=== PATIENT | male | born 1975 | race Caucasian/White ===

== ENCOUNTER 2022-01-15 11:49 | Emergency (ER) | payer SELFPAY ==
--- NOTE | ~2022-01-15 | CT_ITS ---
EXAMINATION: CT facial bones w con DATE: 01/15/2022 15:12 INDICATION: Left facial swelling. TECHNIQUE: Computed tomography (CT) of the facial bones and maxillofacial region was performed with 7 5 mL Omnipaque 350 intravenous contrast. Automated exposure control and iterative reconstruction tech [employer] were employed. The dose-length product was 519.56 mGy-cm. COMPARISON: None. FINDINGS: There is left cheek soft tissue swelling. There is a mildly enlarged right high internal ju gular chain lymph node, likely reactive. There is mucosal thickening in the paranasal sinuses. There are carious lesions of most of the teeth. Many of the teeth are broken. There are periapical lucencie s adjacent to multiple maxillary teeth bilaterally. There is breach of the buccal cortex of the alveo lar process at teeth 21, 20, and 19. No drainable abscess is visualized. Artifact from the tongue pie rcings decreases sensitivity. IMPRESSION: 1. Extensive dental disease. Reviewed, dictated and finalized at location A.
[2022-01-15 12:08] VITALS: BP 108/73; PULSE 102; RESP 14; TEMP 36.8; O2SAT 99
--- NOTE | 2022-01-15 13:24 | ED.DENTAL ---
HPI - Dental/Oral General Chief complaint: Dental/Oral Stated complaint: left facial pain - dental abscess Time Seen by Provider: 01/15/22 13:11 History of Present Illness HPI Narrative: This 46-year-old male with past medical history of dental abscesses who presents to the emergency department complaining of left-sided facial swelling and pain. He states he noticed this 2 days ago that gradually has become worse. He complains of 7 out of 10 pain with chewing but otherwise denies headache, change/loss of vision, change/loss of hearing, double vision or difficulty swallowing. Related Data Allergies Allergy/AdvReac Type Severity Reaction Status Date / Time No Known Allergies Allergy Verified 01/15/22 11:50 Review of Systems Review of Systems: CONSTITUTIONAL: Denies fever, chills, or sweats. EYES: Denies visual changes, redness, or discharge. ENT: Jaw pain denies rhinorrhea, congestion, sore throat, or otalgia. CARDIOVASCULAR: Denies chest pain, palpitations, or edema. RESPIRATORY: Denies cough or dyspnea. GASTROINTESTINAL: Denies abdominal pain, nausea, vomiting, or diarrhea. GENITOURINARY: Denies dysuria or hematuria. SKIN: Denies rash or itching. MUSCULOSKELETAL: Denies back pain, joint pain, or myalgia. NEUROLOGIC: Denies headache, numbness, dizziness, or weakness. PSYCHIATRIC: Denies anxiety or depression. COUNTS INCLUDE 234 BEDS AT THE [facility] Past Medical History Medical History (Updated 01/15/22 @ 22:36 by Dl Ribeiro MD) Dental abscess Dental caries Social History Social History (Updated 01/15/22 @ 22:37 by Dl Ribeiro MD) Smoking status: Never smoker Alcohol intake: former Substance use type: marijuana Exam Narrative: GENERAL: Well-appearing, well-nourished, and in no acute distress. HEAD: Mild swelling of the left maxilla with some erythema without induration, atraumatic. EYES: PERRLA and EOMI. ENT: Nares clear, no rhinorrhea or epistaxis. Mucous membranes moist. Poor dentition with multiple caries and dental fractures, mild erythema and swelling of the maxilla at tooth number 11, without tonsillar hypertrophy exudate or other lesions. NECK: Supple. No adenopathy or masses. No carotid bruits or JVD CHEST: Clear to auscultation. No respiratory distress. No wheezes rales or rhonchi HEART: Regular rate and rhythm. No murmur heard. Normal peripheral pulses. ABDOMEN: Soft, nontender, nondistended, normal active bowel sounds. EXTREMITIES: Normal range of motion. No edema. SKIN: Warm, dry, no rash. NEURO: No focal deficits. Alert and oriented x3. PSYCH: Normal mood and affect. Course Course Emergency Course: 15:42 -CT demonstrates facial swelling with no obvious abscess or involvement of the facial structures. Reassessed patient, he states he feels somewhat improved. Will discharge with oral antibiotics, dental and primary care follow-up. Discussed return emergency precautions including signs/symptoms of deep space facial infection. Patient voiced understanding and is comfortable with the plan. All questions answered to his satisfaction. Vital Signs Vital signs: Vital Signs Temperature 98.2 F 01/15/22 12:08 Pulse Rate 102 H 01/15/22 12:08 Respiratory Rate 14 01/15/22 12:08 Blood Pressure 108/73 01/15/22 12:08 Pulse Oximetry 99 01/15/22 12:08 Oxygen Delivery Room Air 01/15/22 12:08 Temperature 98.2 F 01/15/22 12:08 Pulse Rate 93 01/15/22 15:47 Respiratory Rate 14 01/15/22 15:47 Blood Pressure 111/85 01/15/22 15:47 Pulse Oximetry 98 01/15/22 15:47 Oxygen Delivery Room Air 01/15/22 12:08 MDM - Dental/Oral MDM Narrative Medical decision making narrative: Plan: pain control, imaging, reassess Differential Diagnosis Differential diagnosis: Likely dental caries, dental abscess and other (Facial abscess, other) Lab Data Result diagrams: 01/15/22 13:35 Labs: Lab Results 01/15/22 Range/Units 13:35 Sodium 136 L (137-145) mmol/L [place]
[2022-01-15] MEDS: AMPICILLIN SULB 1.5 GM/NS 50ML 1.5 GM/50 ML VIAL IVPB (13:44)
[2022-01-15 14:22] LABS: Anion Gap 9 mmol/L (8-16); Blood Urea Nitrogen 14 mg/dL (9-20); Calcium 8.9 mg/dL (8.4-10.2); Carbon Dioxide 28 mmol/L (22-30); Chloride 99 mmol/L (98-107); Estimated CRCL calculation 65 ml/min; Estimated Glomerular Filt Rate 60; Glucose 112 mg/dL (65-110); Potassium 3.8 mmol/L (3.4-5.0); Sodium 136 mmol/L (137-145)
[2022-01-15 15:47] VITALS: BP 111/85; PULSE 93; RESP 14; O2SAT 98
== END 2022-01-15 15:59 | disposition home or self-care (01) ==
PROVIDERS: Emergency Provider Preventive Medicine Aerospace Medicine
DX: K04.7 Periapical abscess without sinus (principal); K08.89 Other specified disorders of teeth and supporting structures; R51.9 Headache, unspecified
CPT/HCPCS: 36415; 70487; 80048; 96365; 96375; 99284; J0131; J0295; Q9967

== ENCOUNTER 2022-11-14 11:13 | Emergency (ER) | payer SELFPAY ==
--- NOTE | ~2022-11-14 | XR_ITS ---
EXAMINATION: XR lumbar spine 2-3V DATE: 11/14/2022 14:28 INDICATION: Low back pain. TECHNIQUE: 3 views of lumbar spine were obtained. COMPARISON: None. FINDINGS: There is 4 degrees levocurvature of lumbar spine. Vertebral body heights are normal. There is mildly decreased disc height at L4-L5 and L5-S1. There is multilevel mild to moderate facet joint osteoarthritis. IMPRESSION: 1. Mild lumbar spondylosis. Reviewed, dictated and finalized at location L. IMPRESSION: 1. Mild lumbar spondylosis.
[2022-11-14 11:45] VITALS: BP 125/72; PULSE 82; RESP 20; TEMP 36.4; O2SAT 98
[2022-11-14 11:55] VITALS: BP 126/78; PULSE 77; RESP 18; TEMP 36.6; O2SAT 97
--- NOTE | 2022-11-14 14:35 | ED.BACK ---
HPI - Back Pain/Injury General Chief Complaint: Back Pain/Injury Stated Complaint: back pain Time Seen by Provider: 11/14/22 13:08 Source: patient Mode of arrival: ambulatory Limitations: no limitations History of Present Illness HPI Narrative: This is a 46-year-old male that presents to the emergency department for low back pain present over the last week. No known injury or trauma. He does report he does a lot of bending and some lifting at work. Reports left-sided low back pain that is worse with walking and certain movements. Denies fever, abdominal pain, vomiting, dysuria, hematuria, saddle anesthesia, or bowel/bladder continence. Related Data Allergies Allergy/AdvReac Type Severity Reaction Status Date / Time No Known Allergies Allergy Verified 01/15/22 11:50 Review of Systems Review of Systems: CONSTITUTIONAL: Denies fever GASTROINTESTINAL: Denies abdominal pain, nausea, vomiting GENITOURINARY: Denies dysuria or hematuria. SKIN: Denies rash MUSCULOSKELETAL: Reports back pain, joint pain, and myalgia. NEUROLOGIC: Denies numbness, or weakness. All systems reviewed & are unremarkable except as noted in HPI and below PMFSH Past Medical History Medical History (Updated 11/14/22 @ 14:40 by Lisandra Barragan PA-C) Dental abscess Dental caries Social History Social History (Updated 01/15/22 @ 22:37 by Dl Ribeiro MD) Smoking status: Never smoker Alcohol intake: former Substance use type: marijuana Exam Narrative: GENERAL: Well-appearing, well-nourished, and in no acute distress. HEAD: Normocephalic, atraumatic. EYES: EOMI. CHEST: Clear to auscultation. No respiratory distress. No wheezes rales or rhonchi HEART: Regular rate and rhythm. No murmur heard. Normal peripheral pulses. BACK: No midline spinal tenderness EXTREMITIES: Normal range of motion. No edema. Strength equal in bilateral lower extremities (5/5). Normal DP pulses. Normal sensation SKIN: Warm, dry, no rash. NEURO: No focal deficits. Alert and oriented x3. PSYCH: Normal mood and affect Course Course Emergency Course: Patient updated on work-up and agrees with plan of care Vital Signs Vital signs: Vital Signs Temperature 97.6 F 11/14/22 11:45 Pulse Rate 82 11/14/22 11:45 Respiratory Rate 20 11/14/22 11:45 Blood Pressure 125/72 11/14/22 11:45 Pulse Oximetry 98 11/14/22 11:45 Oxygen Delivery Room Air 11/14/22 11:45 Temperature 97.9 F 11/14/22 11:55 Pulse Rate 77 11/14/22 11:55 Respiratory Rate 18 11/14/22 11:55 Blood Pressure 126/78 11/14/22 11:55 Pulse Oximetry 97 11/14/22 11:55 Oxygen Delivery Room Air 11/14/22 11:55 MDM - Back Pain/Injury MDM Narrative Medical decision making narrative: Patient presents to the emergency department for low back pain ongoing over the last week. No known injury or trauma. Patient is neurologically intact. He denies any abdominal pain or urinary symptoms. Pain is worse with movement and relieved with rest. Lumbar spine x-ray shows mild lumbar spondylosis. Patient instructed to continue to rest, ice and take [id number] pain medication as needed. He is to follow-up with primary care provider. He was given warnings to return to the ER Differential Diagnosis Differential diagnosis: Likely lumbar radiculopathy and strain of lumbar region Imaging Data Radiologist's impression: ITS Impressions Lumbar Spine X-Ray 11/14/22 14:30 IMPRESSION: 1. Mild lumbar spondylosis. Critical Care Time Critical Care Time Critical Care Time: No Discharge Plan Discharge Clinical Impression: Low back pain Qualifiers: Chronicity: acute Back pain laterality: left Sciatica presence: without sciatica Qualified Code(s): M54.50 - Low back pain, unspecified Patient Disposition: Home, Self-Care Condition: Stable Instructions: Acute Low Back Pain (ED) Additional Instructions: Return to the ER if you experience w
== END 2022-11-14 14:51 | disposition home or self-care (01) ==
PROVIDERS: Emergency Provider Physician Assistant
DX: M54.50 Low back pain, unspecified (principal)
CPT/HCPCS: 72100; 99283

== ENCOUNTER 2024-04-26 14:19 | Emergency (ER) | payer OTHER, SELFPAY ==
--- NOTE | ~2024-04-26 | XR_ITS ---
EXAMINATION: XR chest 2V DATE: 04/26/2024 14:48 INDICATION: Lightheadedness. Cough. TECHNIQUE: Frontal and lateral views of the chest were obtained on 3 radiographs. COMPARISON: None. FINDINGS: There is no pneumonia, pleural effusion, or pneumothorax. The heart size is normal. IMPRESSION: 1. No acute cardiopulmonary disease. Reviewed, dictated and finalized at location A. [employer]
[2024-04-26 14:21] VITALS: BP 152/95; PULSE 93; RESP 16; TEMP 36.4; O2SAT 100
--- NOTE | 2024-04-26 14:27 | ED_ITS ---
HPI - General Adult General Chief complaint: Dizziness <SHIRA Heard Last Filed: 04/26/24 14:35> Stated complaint: light headed, fever, weakness <SHIRA Heard Last Filed: 04/26/24 14:35> Time Seen by Provider: 04/26/24 14:27 <SHIRA Heard Last Filed: 04/26/24 14:35> Focused HPI: Patient is a 48-year-old male who presents the ED with multiple complaints. Patient reports he began feeling unwell on night with lightheadedness and dizziness. States at times he felt near syncopal, occasionally feels like the room is spinning- like the ground under him is unstable or his brain feels scrambled. Denies syncope/LOC. states over the weekend he had diarrhea, myalgias, slight dry cough, and felt extremely lethargic, weak, fatigued. Denies fevers, CP, SOB, N/V. GENERAL: Well-appearing, obese with BMI of 32.8, and in no acute distress. HEAD: Normocephalic, atraumatic. CHEST: Clear to auscultation. ?No respiratory distress. HEART: Regular rate and rhythm.? NEURO: ?Alert and oriented x3. Patient screened in triage and initial orders placed.? ?Additional care and disposition to be based upon?diagnostic testing and treatment. <Zelda Motley PA-C - Last Filed: 04/26/24 14:35> Source: patient <SHIRA Heard Last Filed: 04/26/24 14:35> Mode of arrival: ambulatory <SHIRA Heard Last Filed: 04/26/24 14:35> Limitations: no limitations <SHIRA Heard Last Filed: 04/26/24 14:35> History of Present Illness HPI narrative: Agree with the above note <SHIRA Rivas Last Filed: 04/26/24 20:12> Related Data Allergies/adverse reactions: Allergies Allergy/AdvReac Type Severity Reaction Status Date / Time No Known Allergies Allergy Verified 04/26/24 16:36 <Zelda Motley PA-C - Last Filed: 04/26/24 14:35> Review of Systems 2 Review of Systems: All systems reviewed & are unremarkable except as noted in HPI and below <Alicia Hernández PA-C - Last Filed: 04/26/24 20:12> PMFSH Past Medical History Medical History: Medical History Dental caries Dental abscess <Zelda Motley PA-C - Last Filed: 04/26/24 14:35> Social History Social History: Social History Smoking status: Never smoker Alcohol intake: former Substance use type: marijuana <Zelda Motley PA-C - Last Filed: 04/26/24 14:35> Exam 2 Narrative: GENERAL: Well-appearing, well-nourished, and in no acute distress. HEAD: Normocephalic, atraumatic. EYES: PERRLA and EOMI. ENT: Nares clear, no rhinorrhea or epistaxis. Mucous membranes moist. Bilateral TMs with effusions, no erythema or bulging, normal canals. Posterior pharynx without erythema or edema NECK: Supple. CHEST: Clear to auscultation. No respiratory distress. HEART: Regular rate and rhythm. No murmur heard. Normal peripheral pulses. ABDOMEN: Soft, nontender, nondistended, normal active bowel sounds. EXTREMITIES: Normal range of motion. No edema. SKIN: Warm, dry, no rash. NEURO: No focal deficits. Alert and oriented x3 <Alicia Hernández PA-C - Last Filed: 04/26/24 20:12> Course Vital Signs Vital signs: Vital Signs Temperature 97.6 F 04/26/24 14:21 Pulse Rate 93 04/26/24 14:21 Respiratory Rate 16 04/26/24 14:21 Blood Pressure 152/95 H 04/26/24 14:21 Pulse Oximetry 100 04/26/24 14:21 Oxygen Delivery Room Air 04/26/24 14:21 Temperature 97.6 F 04/26/24 14:21 Pulse Rate 93 04/26/24 14:21 Respiratory Rate 16 04/26/24 14:21 Blood Pressure 152/95 H 04/26/24 14:21 Pulse Oximetry 100 04/26/24 14:21 Oxygen Delivery Room Air 04/26/24 14:21 <Zelda Motley PA-C - Last Filed: 04/26/24 14:35> Vital Signs Temperature 97.6 F 04/26/24 14:21 Pulse Rate 93 04/26/24 14:21 Respiratory Rate 16 04/26/24 14:21 Blood Pressure 152/95 H 04/26/24 14:21 Pulse Oximetry 100 04/26/24 14:21 Oxygen Delivery Room Air 04/26/24 14:21 Temperature 97.6 F 04/26/24 14:21 Pulse Rate 93 04/26/24 14:21 Respiratory Rate 16 04/26/24 14:21 Blood Pressure 152/95 H 04/26/24 14:21 Pulse Oximetry 100 04/26/24 14:21 Oxygen Delivery Room Air 04/26/24 14:21 <Alicia Hernández PA-C - Last Filed: 04/26/24 20:12> Medical Decision Making MDM Narrative Medical decision making narrative: MSE by CHAZ in triage. <SHIRA Heard Last Filed: 04/26/24 14:35> MSE by CHAZ in triage. 48-year-old male presents emergency department for lightheadedness, dehydration, cough, generalized malaise for 4 days. Vitals are stable. He is afebrile and nontoxic appearing. Exam is significant for the above. Workup is remarkable for mild leukopenia of 4. Chemistries significant for mildly elevated magnesium 2.4 and mild hypocalcemia of 8.3. Chest x-ray shows no acute cardiopulmonary findings. Viral swabs are positive for influenza a which is consistent with patient's presentation/symptoms as well as mild leukopenia. Patient and his were updated on workup. Given duration of symptoms, will refrain from Tamiflu. He received IV fluids with improvement. He is ambulatory in the ED. Vitals remained stable. He is tolerating p.o. intake. Discussed supportive care, increase fluid intake and follow-up with PCP. Return precautions discussed. He is agreeable to plan verbalized understanding. Discharged in stable condition. <Alicia Hernández PA-C - Last Filed: 04/26/24 20:12> Vital Signs Vital Signs: Vital Signs Temperature 97.6 F 04/26/24 14:21 Pulse Rate 93 04/26/24 14:21 Respiratory Rate 16 04/26/24 14:21 Blood Pressure 152/95 H 04/26/24 14:21 Pulse Oximetry 100 04/26/24 14:21 Oxygen Delivery Room Air 04/26/24 14:21 Temperature 97.6 F 04/26/24 14:21 Pulse Rate 93 04/26/24 14:21 Respiratory Rate 16 04/26/24 14:21 Blood Pressure 152/95 H 04/26/24 14:21 Pulse Oximetry 100 04/26/24 14:21 Oxygen Delivery Room Air 04/26/24 14:21 <SHIRA Heard Last Filed: 04/26/24 14:35> Vital Signs Temperature 97.6 F 04/26/24 14:21 Pulse Rate 93 04/26/24 14:21 Respiratory Rate 16 04/26/24 14:21 Blood Pressure 152/95 H 04/26/24 14:21 Pulse Oximetry 100 04/26/24 14:21 Oxygen Delivery Room Air 04/26/24 14:21 Temperature 97.6 F 04/26/24 14:21 Pulse Rate 93 04/26/24 14:21 Respiratory Rate 16 04/26/24 14:21 Blood Pressure 152/95 H 04/26/24 14:21 Pulse Oximetry 100 04/26/24 14:21 Oxygen Delivery Room Air 04/26/24 14:21 <Alicia Hernández PA-C - Last Filed: 04/26/24 20:12> Lab Data Result diagrams: 04/26/24 16:53 04/26/24 16:53 <SHIRA Heard Last Filed: 04/26/24 14:35> Labs: Lab Results 04/26/24 Range/Units 16:53 WBC 4.0 L (4.5-10.0) K/mm3 RBC 5.32 (4.6-6.20) M/mm3 Hgb 15.5 (14.0-18.0) g/dL Hct 44.3 (42.0-52.0) % MCV 83.3 (80-100) fl MCH 29.1 (26-34) pg MCHC 35.0 (32-36) g/dl RDW 12.5 (11.5-14.5) % Plt Count 174 (150-375) k/mm3 MPV 10.9 H (7.4-10.4) fl Immature Gran % (Auto) 0.5 (0-0.5) % Neut % (Auto) 68.2 (45.5-73.1) % Lymph % (Auto) 19.0 (18.3-44.2) % [place] % (Auto) 11.5 H (2.6-8.5) % Eos % (Auto) 0.3 (0-4.4) % Baso % (Auto) 0.5 (0.2-1.2) % Lymph # (Auto) 0.76 L (0.9-3.2) K/mm3 [place] # (Auto) 0.5 (0.1-0.6) K/mm3 Eos # (Auto) 0.0 (0-0.3) K/mm3 Baso # (Auto) 0.0 (0.0-0.1) K/mm3 Abs Immat Gran (auto) 0.02 (0.00-0.031) K/mm3 Absolute Neuts (auto) 2.7 (1.3-6.7) K/mm3 Absolute Nucleated RBC 0.000 (0.0-0.012) K/mm3 Nucleated RBC % 0.0 (0.0-0.2) % PT 12.9 (11.1-14.7) Seconds INR 0.9 APTT 27.5 (22.3-36.8) Seconds Sodium 136 L (137-145) mmol/L Potassium 4.0 (3.4-5.0) mmol/L Chloride 101 (98-107) mmol/L Carbon Dioxide 28 (22-30) mmol/L Anion Gap 7 (4-12) mmol/L BUN 22 H (9-20) mg/dL Creatinine 0.90 (0.7-1.3) mg/dL Estim Creat Clear Calc 105 ml/min Estimated GFR > 60 (59 - ) Glucose 104 (65-110) mg/dL Calcium 8.3 L (8.4-10.2) mg/dL Magnesium 2.4 H (1.6-2.3) mg/dL Total Bilirubin 0.4 (0.2-1.3) mg/dL AST 36 (17-59) U/L ALT 25 (6-50) U/L Alkaline Phosphatase 57 (38-126) U/L Total Protein 7.0 (6.3-8.2) g/dL Albumin 3.8 (3.5-5.1) g/dL Influenza A (RT-PCR) Positive A (Negative) Influenza B (RT-PCR) Negative (Negative) RSV (RT-PCR) Negative (Negative) SARS-CoV-2 RNA (RT-PCR) Negative (Negative) <Zelda Motley PA-C - Last Filed: 04/26/24 14:35> Lab Results 04/26/24 Range/Units 16:53 WBC 4.0 L (4.5-10.0) K/mm3 RBC 5.32 (4.6-6.20) M/mm3 Hgb 15.5 (14.0-18.0) g/dL Hct 44.3 (42.0-52.0) % MCV 83.3 (80-100) fl MCH 29.1 (26-34) pg MCHC 35.0 (32-36) g/dl RDW 12.5 (11.5-14.5) % Plt Count 174 (150-375) k/mm3 MPV 10.9 H (7.4-10.4) fl Immature Gran % (Auto) 0.5 (0-0.5) % Neut % (Auto) 68.2 (45.5-73.1) % Lymph % (Auto) 19.0 (18.3-44.2) % [place] % (Auto) 11.5 H (2.6-8.5) % Eos % (Auto) 0.3 (0-4.4) % Baso % (Auto) 0.5 (0.2-1.2) % Lymph # (Auto) 0.76 L (0.9-3.2) K/mm3 [place] # (Auto) 0.5 (0.1-0.6) K/mm3 Eos # (Auto) 0.0 (0-0.3) K/mm3 Baso # (Auto) 0.0 (0.0-0.1) K/mm3 Abs Immat Gran (auto) 0.02 (0.00-0.031) K/mm3 Absolute Neuts (auto) 2.7 (1.3-6.7) K/mm3 Absolute Nucleated RBC 0.000 (0.0-0.012) K/mm3 Nucleated RBC % 0.0 (0.0-0.2) % PT 12.9 (11.1-14.7) Seconds INR 0.9 APTT 27.5 (22.3-36.8) Seconds Sodium 136 L (137-145) mmol/L Potassium 4.0 (3.4-5.0) mmol/L Chloride 101 (98-107) mmol/L Carbon Dioxide 28 (22-30) mmol/L Anion Gap 7 (4-12) mmol/L BUN 22 H (9-20) mg/dL Creatinine 0.90 (0.7-1.3) mg/dL Estim Creat Clear Calc 105 ml/min Estimated GFR > 60 (59 - ) Glucose 104 (65-110) mg/dL Calcium 8.3 L (8.4-10.2) mg/dL Magnesium 2.4 H (1.6-2.3) mg/dL Total Bilirubin 0.4 (0.2-1.3) mg/dL AST 36 (17-59) U/L ALT 25 (6-50) U/L Alkaline Phosphatase 57 (38-126) U/L Total Protein 7.0 (6.3-8.2) g/dL Albumin 3.8 (3.5-5.1) g/dL Influenza A (RT-PCR) Positive A (Negative) Influenza B (RT-PCR) Negative (Negative) RSV (RT-PCR) Negative (Negative) SARS-CoV-2 RNA (RT-PCR) Negative (Negative) <Alicia Hernández PA-C - Last Filed: 04/26/24 20:12> Discharge Plan Discharge Clinical Impression: Influenza A <SHIRA Heard Last Filed: 04/26/24 14:35> Patient Disposition: Home, Self-Care <SHIRA Heard Last Filed: 04/26/24 14:35> Condition: Stable <SHIRA Heard Last Filed: 04/26/24 14:35> Instructions: Antibiotic Form, Dehydration (DC), Influenza (DC) <SHIRA Heard Last Filed: 04/26/24 14:35> Additional Instructions: You tested positive for flu A. Please rest, drink plenty of fluids including water, Gatorade and Pedialyte. Follow-up with her PCP in 1 week. Return to the emergency department if you are unable to keep down food or fluids, you develop worsening cough, shortness of breath or other concerning symptoms. <SHIRA Heard Last Filed: 04/26/24 14:35> Patient Language: Amharic <SHIRA Heard Last Filed: 04/26/24 14:35> Prescriptions: No Action amoxicillin-pot clavulanate 875-125 mg tablet 1 tablet PO Q12H Qty: 14 0RF acetaminophen 500 mg tablet 1,000 mg PO Q8H PRN (Reason: fever or pain) Qty: 60 0RF cyclobenzaprine 10 mg tablet 10 mg PO TID PRN (Reason: muscle spasm) Qty: 14 0RF <SHIRA Heard Last Filed: 04/26/24 14:35> Follow-up/Referrals: PHYSICIAN,TYPIST [Primary Care Provider] - <SHIRA Heard Last Filed: 04/26/24 14:35> Stand Alone Forms: Work/School Release IP <SHRIA Heard Last Filed: 04/26/24 14:35>
[2024-04-26 17:04] LABS: Basophils Percent Auto 0.5 % (0.2-1.2); Eosinophils Percent Auto 0.3 % (0-4.4); Hematocrit 44.3 % (42.0-52.0); Hemoglobin 15.5 g/dL (14.0-18.0); Immature Granulocyte Absolute 0.02 K/mm3 (0.00-0.031); Immature Granulocyte Percent A 0.5 % (0-0.5); Lymphocytes Absolute Auto 0.76 K/mm3 (0.9-3.2); Mean Corpuscular Hemoglobin 29.1 pg (26-34); Mean Corpuscular Volume 83.3 fl (80-100); Mean Platelet Volume 10.9 fl (7.4-10.4); Monocytes Absolute Auto 0.5 K/mm3 (0.1-0.6); Monocytes Percent Auto 11.5 % (2.6-8.5); Neutrophils Absolute Auto 2.7 K/mm3 (1.3-6.7); Neutrophils Percent Auto 68.2 % (45.5-73.1); Platelet Count Result 174 k/mm3 (150-375); Red Blood Count 5.32 M/mm3 (4.6-6.20); Red Cell Distribution Width 12.5 % (11.5-14.5)
[2024-04-26 17:14] LABS: INR 0.9; Prothrombin Time 12.9 Seconds (11.1-14.7)
[2024-04-26 17:15] LABS: Partial Thromboplastin Time 27.5 Seconds (22.3-36.8)
[2024-04-26 17:22] LABS: Alanine Aminotransferase 25 U/L (6-50); Albumin Level 3.8 g/dL (3.5-5.1); Alkaline Phosphatase 57 U/L (38-126); Anion Gap 7 mmol/L (4-12); Aspartate Amino Transferase 36 U/L (17-59); Bilirubin,Total 0.4 mg/dL (0.2-1.3); Blood Urea Nitrogen 22 mg/dL (9-20); Calcium 8.3 mg/dL (8.4-10.2); Carbon Dioxide 28 mmol/L (22-30); Chloride 101 mmol/L (98-107); Estimated CRCL calculation 105 ml/min; Estimated Glomerular Filt Rate > 60; Glucose 104 mg/dL (65-110); Magnesium 2.4 mg/dL (1.6-2.3); Sodium 136 mmol/L (137-145)
[2024-04-26 17:41] LABS: Influenza A QL RT-PCR Positive (Negative); Influenza B QL RT-PCR Negative (Negative); RSV RNA, RT-PCR Negative (Negative); SARS-CoV-2 RNA PCR Negative (Negative)
[2024-04-26] MEDS: SODIUM CHLORIDE 0.9% IV 1,000 ML 999 ML IV CONT (19:53)
== END 2024-04-26 20:52 | disposition home or self-care (01) ==
PROVIDERS: Physician Assistant; Emergency Provider Physician Assistant
DX: J10.1 Influenza due to other identified influenza virus with other respiratory manifestations (principal); Z20.822 Contact with and (suspected) exposure to COVID-19
CPT/HCPCS: 36415; 71046; 80053; 83735; 85025; 85610; 85730; 87637; 96360; 99283; J7030